=== PATIENT | male | born 1960 | race Caucasian/White ===

== ENCOUNTER 2022-01-03 21:56 | Emergency (ER) | payer OTHER, SELFPAY ==
[2022-01-03 22:26] VITALS: BP 129/71; PULSE 60; RESP 16; TEMP 36.6; O2SAT 99
--- NOTE | 2022-01-04 00:57 | ED.BACK ---
HPI - Back Pain/Injury General Chief Complaint: Back Pain/Injury Stated Complaint: back injury Time Seen by Provider: 01/04/22 00:32 Source: patient Mode of arrival: ambulatory Limitations: no limitations History of Present Illness HPI Narrative: This is a 61 year old male with history of hypertension, seizures and anxiety who presents for evaluation of low back pain tonight at work. He states he was moving a box and when he was twisting he developed right lower back pain. His pain is worse with movement and breathing. He is sitting in chair currently and he states his pain is 2 /10 at this position. He has not taken any medication or treatment for his pain. He denies abdominal pain , leg weakness, numbness, tingling, urinary incontinence or retention. He reports having back issue in the past. He denies any nausea, vomiting, fever or leg cramping. Related Data Allergies Allergy/AdvReac Type Severity Reaction Status Date / Time NSAIDS (Non-Steroidal Allergy Unknown Verified 01/04/22 00:03 Anti-Inflamma Review of Systems Review of Systems: All systems reviewed & are unremarkable except as noted in HPI and below PMFSH Past Medical History Medical History (Updated 01/04/22 @ 01:10 by Francisca Meyer MD) Anxiety Hypertension Seizure Surgical History Surgical History (Updated 01/04/22 @ 01:07 by Francisca Meyer MD) No pertinent past surgical history Social History Social History (Updated 01/04/22 @ 01:07 by Francisca Meyer MD) Smoking status: Never smoker Exam Const: General: healthy appearing and no acute distress Nutritional Appearance: well nourished Orientation/consciousness: patient oriented x3 HENMT: Head: normal to inspection Eyes: EOM: EOMs intact bilaterally Resp: Effort & Inspection: normal respiratory effort Auscultation: clear to auscultation bilaterally Cardio: Rate: regular rate Rhythm: regular rhythm Heart sounds: no murmurs GI: GI Palp: Yes Soft to palpation, No Tenderness to palpation present (GI) and No Guarding due to palpation present (GI) Auscultation: normal bowel sounds Back/Spine/Pelvis: Thoracic/Lumbar Spine: thoraco-lumbar spasm on the right and on the right greater than left Skin: General skin exam: normal color Rashes: no rashes Wounds: no wounds Neuro: General: patient oriented x3, moves all extremities and CN's II-XI intact bilaterally Cranial nerves: Yes Nystagmus not present Extrem: General: normal to inspection, no clubbing, cyanosis or edema and no pedal edema Psych: Mental Status: mental status grossly normal Affect: normal affect Attitude: cooperative Course Reevaluation(s) Reevaluation #1: I Discussed with patient discharge plan with treatment of spasm with muscle relaxers. He agrees no imaging needed at this time. Date: 01/04/22 Time: 01:08 Vital Signs Vital signs: Vital Signs Temperature 98 F 01/03/22 22:26 Pulse Rate 60 01/03/22 22:26 Respiratory Rate 16 01/03/22 22:26 Blood Pressure 129/71 01/03/22 22:26 Pulse Oximetry 99 01/03/22 22:26 Oxygen Delivery Room Air 01/03/22 22:26 Temperature 98 F 01/03/22 22:26 Pulse Rate 80 01/04/22 01:29 Respiratory Rate 20 01/04/22 01:29 Blood Pressure 141/93 H 01/04/22 01:29 Pulse Oximetry 98 01/04/22 01:29 Oxygen Delivery Room Air 01/03/22 22:26 Discharge Plan Discharge Clinical Impression: Back muscle spasm Patient Disposition: Home, Self-Care Condition: Stable Instructions: Antibiotic Form, Back Pain (ED) Additional Instructions: Take NSADS such as aleve or ibuprofen for your pain with muscle relaxers. You can also try heating pad or over the counter muscle medications. Follow up with your workman's comp Prescriptions: New cyclobenzaprine 10 mg tablet 10 mg PO BID PRN (Reason: muscle spasm) Qty: 14 0RF Follow-up/Referrals: Hunter Ruiz M.D. [Primary Care Provider] -
[2022-01-04 01:29] VITALS: BP 141/93; PULSE 80; RESP 20; O2SAT 98
== END 2022-01-04 01:31 | disposition home or self-care (01) ==
PROVIDERS: Emergency Provider General Practice; PCP Family Medicine
DX: M62.830 Muscle spasm of back (principal)
CPT/HCPCS: 99283